=== PATIENT | female | born 1940 | race Caucasian/White ===

== ENCOUNTER → 2017-06-24 | Outpatient (CLI) | payer MEDICARE, OTHER ==
[~2017-06-24] MED LIST: BIMA0.01 EACHEYE; DORZ1SOL2 OP
[2017-06-24 11:26] VITALS: BP_SYST 126; BP_SYST 128; BP_DIAS 57; BP_DIAS 88
[2017-06-24 12:30] VITALS: BP 126/88
[2017-06-24 12:40] VITALS: BP 128/57
== END | disposition home or self-care (01) ==
LOC: CHF HDHVI 10:53
PROVIDERS: ATTEND Internal Medicine Cardiovascular Disease
DX: I25.118 Atherosclerotic heart disease of native coronary artery with other forms of angina pectoris (principal); I50.23 Acute on chronic systolic (congestive) heart failure; E11.9 Type 2 diabetes mellitus without complications; I63.9 Cerebral infarction, unspecified; Z98.61 Coronary angioplasty status
CPT/HCPCS: 93005; G0166; G0463

== ENCOUNTER → 2017-06-25 | Outpatient (CLI) | payer MEDICARE, OTHER ==
[2017-06-25 11:12] VITALS: BP_SYST 136; BP_SYST 141; BP_DIAS 71; BP_DIAS 75
== END | disposition home or self-care (01) ==
LOC: CHF HDHVI 10:51
PROVIDERS: ATTEND Internal Medicine Cardiovascular Disease
DX: E11.9 Type 2 diabetes mellitus without complications (principal); I25.118 Atherosclerotic heart disease of native coronary artery with other forms of angina pectoris; I25.5 Ischemic cardiomyopathy; I50.23 Acute on chronic systolic (congestive) heart failure; I63.9 Cerebral infarction, unspecified; Z98.61 Coronary angioplasty status
CPT/HCPCS: G0166

== ENCOUNTER → 2017-06-26 | Outpatient (CLI) | payer MEDICARE, OTHER ==
[2017-06-26 11:22] VITALS: BP_SYST 140; BP_SYST 142; BP_DIAS 70; BP_DIAS 77
== END | disposition home or self-care (01) ==
LOC: Rad HDHVI 10:46
PROVIDERS: ATTEND Internal Medicine Cardiovascular Disease
DX: I25.118 Atherosclerotic heart disease of native coronary artery with other forms of angina pectoris (principal); I25.5 Ischemic cardiomyopathy; I50.23 Acute on chronic systolic (congestive) heart failure; E11.9 Type 2 diabetes mellitus without complications; I63.9 Cerebral infarction, unspecified; Z98.61 Coronary angioplasty status
CPT/HCPCS: 93306; G0166

== ENCOUNTER → 2017-06-28 | Outpatient (CLI) | payer MEDICARE, OTHER ==
[2017-06-28 11:35] VITALS: BP_SYST 139; BP_SYST 140; BP_DIAS 61; BP_DIAS 74
== END | disposition home or self-care (01) ==
LOC: CHF HDHVI 10:54
PROVIDERS: ATTEND Internal Medicine Cardiovascular Disease
DX: I25.118 Atherosclerotic heart disease of native coronary artery with other forms of angina pectoris (principal); I25.5 Ischemic cardiomyopathy; I50.23 Acute on chronic systolic (congestive) heart failure; E11.9 Type 2 diabetes mellitus without complications; I63.9 Cerebral infarction, unspecified; Z98.61 Coronary angioplasty status
CPT/HCPCS: G0166

== ENCOUNTER → 2017-07-01 | Outpatient (CLI) | payer MEDICARE, OTHER ==
[2017-07-01 11:04] VITALS: BP_SYST 134; BP_SYST 137; BP_DIAS 76; BP_DIAS 90
== END | disposition home or self-care (01) ==
LOC: CHF HDHVI 10:57
PROVIDERS: ATTEND Internal Medicine Cardiovascular Disease
DX: I25.118 Atherosclerotic heart disease of native coronary artery with other forms of angina pectoris (principal); I25.5 Ischemic cardiomyopathy; E11.9 Type 2 diabetes mellitus without complications; I63.9 Cerebral infarction, unspecified; Z98.61 Coronary angioplasty status
CPT/HCPCS: G0166

== ENCOUNTER → 2017-07-02 | Outpatient (CLI) | payer MEDICARE, OTHER ==
[2017-07-02 11:34] VITALS: BP_SYST 136; BP_SYST 137; BP_DIAS 70; BP_DIAS 72
== END | disposition home or self-care (01) ==
LOC: CHF HDHVI 11:10
PROVIDERS: ATTEND Internal Medicine Cardiovascular Disease
DX: I25.118 Atherosclerotic heart disease of native coronary artery with other forms of angina pectoris (principal); I25.5 Ischemic cardiomyopathy; E11.9 Type 2 diabetes mellitus without complications; I50.23 Acute on chronic systolic (congestive) heart failure; I63.9 Cerebral infarction, unspecified; Z98.61 Coronary angioplasty status
CPT/HCPCS: G0166

== ENCOUNTER → 2017-07-03 | Outpatient (CLI) | payer MEDICARE, OTHER ==
[2017-07-03 11:20] VITALS: BP_SYST 130; BP_SYST 132; BP_DIAS 70; BP_DIAS 80
== END | disposition home or self-care (01) ==
LOC: CHF HDHVI 11:07
PROVIDERS: ATTEND Internal Medicine Cardiovascular Disease
DX: I25.118 Atherosclerotic heart disease of native coronary artery with other forms of angina pectoris (principal); E11.9 Type 2 diabetes mellitus without complications; I25.5 Ischemic cardiomyopathy; I50.23 Acute on chronic systolic (congestive) heart failure; I63.9 Cerebral infarction, unspecified; Z98.61 Coronary angioplasty status
CPT/HCPCS: G0166

== ENCOUNTER → 2017-07-04 | Outpatient (CLI) | payer MEDICARE, OTHER ==
[2017-07-04 11:01] VITALS: BP_SYST 139; BP_DIAS 81; BP_DIAS 83
== END | disposition home or self-care (01) ==
LOC: CHF HDHVI 10:55
PROVIDERS: ATTEND Internal Medicine Cardiovascular Disease
DX: I25.118 Atherosclerotic heart disease of native coronary artery with other forms of angina pectoris (principal); I25.5 Ischemic cardiomyopathy; I50.23 Acute on chronic systolic (congestive) heart failure; I63.9 Cerebral infarction, unspecified; E11.9 Type 2 diabetes mellitus without complications; Z98.61 Coronary angioplasty status
CPT/HCPCS: G0166

== ENCOUNTER → 2017-07-05 | Outpatient (CLI) | payer MEDICARE, OTHER ==
[2017-07-05 09:14] VITALS: BP_SYST 124; BP_SYST 131; BP_DIAS 64; BP_DIAS 72
== END | disposition home or self-care (01) ==
LOC: Rad HDHVI 10:43
PROVIDERS: ATTEND Internal Medicine Cardiovascular Disease
DX: I25.118 Atherosclerotic heart disease of native coronary artery with other forms of angina pectoris (principal); I25.5 Ischemic cardiomyopathy; I50.23 Acute on chronic systolic (congestive) heart failure; E11.9 Type 2 diabetes mellitus without complications; I63.9 Cerebral infarction, unspecified; Z98.61 Coronary angioplasty status
CPT/HCPCS: G0166

== ENCOUNTER → 2017-07-09 | Outpatient (CLI) | payer MEDICARE, OTHER ==
[2017-07-09 11:36] VITALS: BP_SYST 139; BP_SYST 145; BP_DIAS 72; BP_DIAS 74
== END | disposition home or self-care (01) ==
LOC: CHF HDHVI 11:25
PROVIDERS: ATTEND Internal Medicine Cardiovascular Disease
DX: I25.118 Atherosclerotic heart disease of native coronary artery with other forms of angina pectoris (principal); I50.23 Acute on chronic systolic (congestive) heart failure; I63.9 Cerebral infarction, unspecified; E11.9 Type 2 diabetes mellitus without complications; Z98.61 Coronary angioplasty status
CPT/HCPCS: G0166

== ENCOUNTER → 2017-07-10 | Outpatient (CLI) | payer MEDICARE, OTHER ==
[2017-07-10 10:53] VITALS: BP_SYST 132; BP_SYST 138; BP_DIAS 69; BP_DIAS 74
== END | disposition home or self-care (01) ==
LOC: CHF HDHVI 10:45
PROVIDERS: ATTEND Internal Medicine Cardiovascular Disease
DX: I25.118 Atherosclerotic heart disease of native coronary artery with other forms of angina pectoris (principal); I25.5 Ischemic cardiomyopathy; I50.23 Acute on chronic systolic (congestive) heart failure; I63.9 Cerebral infarction, unspecified; E11.9 Type 2 diabetes mellitus without complications; Z98.61 Coronary angioplasty status
CPT/HCPCS: G0166

== ENCOUNTER → 2017-07-11 | Outpatient (CLI) | payer MEDICARE, OTHER ==
[2017-07-11 11:10] VITALS: BP_SYST 137; BP_SYST 139; BP_DIAS 76; BP_DIAS 79
== END | disposition home or self-care (01) ==
LOC: CHF HDHVI 11:08
PROVIDERS: ATTEND Internal Medicine Cardiovascular Disease
DX: I25.118 Atherosclerotic heart disease of native coronary artery with other forms of angina pectoris (principal); I50.23 Acute on chronic systolic (congestive) heart failure; I63.9 Cerebral infarction, unspecified; E11.9 Type 2 diabetes mellitus without complications; Z98.61 Coronary angioplasty status
CPT/HCPCS: G0166

== ENCOUNTER → 2017-07-12 | Outpatient (CLI) | payer MEDICARE, OTHER ==
[~2017-07-12] MED LIST changes: +ATOR20TA50; +LEVO200T45; +LISI40TA; +METF-372; +METO25TA5; +TICA90TA
[2017-07-12 11:28] VITALS: BP_SYST 140; BP_SYST 144; BP_DIAS 75; BP_DIAS 78
== END | disposition home or self-care (01) ==
LOC: CHF HDHVI 11:21
PROVIDERS: ATTEND Internal Medicine Cardiovascular Disease
DX: I25.118 Atherosclerotic heart disease of native coronary artery with other forms of angina pectoris (principal); I25.5 Ischemic cardiomyopathy; I50.23 Acute on chronic systolic (congestive) heart failure; I63.9 Cerebral infarction, unspecified; E11.9 Type 2 diabetes mellitus without complications; Z98.61 Coronary angioplasty status
CPT/HCPCS: G0166

== ENCOUNTER → 2017-07-17 | Outpatient (CLI) | payer MEDICARE, OTHER ==
[2017-07-17 11:08] VITALS: BP_SYST 134; BP_SYST 136; BP_DIAS 71; BP_DIAS 75
== END | disposition home or self-care (01) ==
LOC: CHF HDHVI 11:00
PROVIDERS: ATTEND Internal Medicine Cardiovascular Disease
DX: I25.118 Atherosclerotic heart disease of native coronary artery with other forms of angina pectoris (principal); I25.5 Ischemic cardiomyopathy; I50.23 Acute on chronic systolic (congestive) heart failure; I63.9 Cerebral infarction, unspecified; E11.9 Type 2 diabetes mellitus without complications; Z98.61 Coronary angioplasty status
CPT/HCPCS: G0166

== ENCOUNTER → 2017-07-18 | Outpatient (CLI) | payer MEDICARE, OTHER ==
[2017-07-18 11:34] VITALS: BP_SYST 139; BP_SYST 145; BP_DIAS 76; BP_DIAS 78
== END | disposition home or self-care (01) ==
LOC: CHF HDHVI 10:55
PROVIDERS: ATTEND Internal Medicine Cardiovascular Disease
DX: I25.118 Atherosclerotic heart disease of native coronary artery with other forms of angina pectoris (principal); I25.5 Ischemic cardiomyopathy; I50.23 Acute on chronic systolic (congestive) heart failure; I63.9 Cerebral infarction, unspecified; E11.9 Type 2 diabetes mellitus without complications; Z98.61 Coronary angioplasty status
CPT/HCPCS: G0166

== ENCOUNTER → 2017-07-22 | Outpatient (CLI) | payer MEDICARE, OTHER ==
[2017-07-22 11:36] VITALS: BP_SYST 135; BP_SYST 140; BP_DIAS 73; BP_DIAS 75
== END | disposition home or self-care (01) ==
LOC: CHF HDHVI 10:58
PROVIDERS: ATTEND Internal Medicine Cardiovascular Disease
DX: I25.118 Atherosclerotic heart disease of native coronary artery with other forms of angina pectoris (principal); I25.5 Ischemic cardiomyopathy; I50.23 Acute on chronic systolic (congestive) heart failure; I63.9 Cerebral infarction, unspecified; E11.9 Type 2 diabetes mellitus without complications; Z98.61 Coronary angioplasty status
CPT/HCPCS: G0166

== ENCOUNTER → 2017-07-24 | Outpatient (CLI) | payer MEDICARE, OTHER ==
[2017-07-24 11:13] VITALS: BP_SYST 127; BP_SYST 138; BP_DIAS 70; BP_DIAS 73
== END | disposition home or self-care (01) ==
LOC: CHF HDHVI 10:53
PROVIDERS: ATTEND Internal Medicine Cardiovascular Disease
DX: I25.118 Atherosclerotic heart disease of native coronary artery with other forms of angina pectoris (principal); I25.5 Ischemic cardiomyopathy; I50.23 Acute on chronic systolic (congestive) heart failure; I63.9 Cerebral infarction, unspecified; E11.9 Type 2 diabetes mellitus without complications; Z98.61 Coronary angioplasty status
CPT/HCPCS: G0166

== ENCOUNTER → 2017-07-29 | Outpatient (CLI) | payer MEDICARE, OTHER ==
[2017-07-29 11:06] VITALS: BP_SYST 126; BP_SYST 127; BP_DIAS 76; BP_DIAS 89
== END | disposition home or self-care (01) ==
LOC: CHF HDHVI 10:56
PROVIDERS: ATTEND Internal Medicine Cardiovascular Disease
DX: I25.5 Ischemic cardiomyopathy (principal); I50.23 Acute on chronic systolic (congestive) heart failure; E11.9 Type 2 diabetes mellitus without complications; Z95.5 Presence of coronary angioplasty implant and graft; I25.118 Atherosclerotic heart disease of native coronary artery with other forms of angina pectoris
CPT/HCPCS: G0166

== ENCOUNTER → 2017-07-30 | Outpatient (CLI) | payer MEDICARE, OTHER ==
[2017-07-30 11:15] VITALS: BP_SYST 138; BP_SYST 143; BP_DIAS 78
== END | disposition home or self-care (01) ==
LOC: CHF HDHVI 10:54
PROVIDERS: ATTEND Internal Medicine Cardiovascular Disease
DX: I25.118 Atherosclerotic heart disease of native coronary artery with other forms of angina pectoris (principal); I25.5 Ischemic cardiomyopathy; I50.23 Acute on chronic systolic (congestive) heart failure; Z95.5 Presence of coronary angioplasty implant and graft; E11.9 Type 2 diabetes mellitus without complications; Z86.73 Personal history of transient ischemic attack (TIA), and cerebral infarction without residual deficits
CPT/HCPCS: G0166

== ENCOUNTER 2017-07-31 06:47 | Inpatient (IN) | payer MEDICARE, OTHER ==
[~2017-07-31] VITALS: Ht 157.5 cm; Wt 61.9 kg
[~2017-07-31 06:47] MED LIST changes: -ATOR20TA50; -LEVO200T45; -LISI40TA; -METF-372; -METO25TA5; -TICA90TA
[2017-07-31] MEDS ORDERED: SODIUM CHLORIDE 0.9% 1,000 ML IV ONE (07:31)
[2017-07-31 08:50] LABS: Basophils # (auto) 0.1 uL; Basophils % (auto) 0.8 % (0.0-2.0); Eosinophils # (auto) 0.1 uL; Eosinophils % (auto) 1.7 % (0.0-7.0); Hematocrit 27.4 % (36.0-46.0); Hemoglobin 9.2 g/dL (12.2-16.2); Lymphocytes # (auto) 0.7 uL; Lymphocytes % (auto) 10.8 % (10.0-50.0); Mean Corpuscular Hemoglobin 31.9 pg (28.0-32.0); Mean Corpuscular Hgb Conc. 33.7 g/dL (32.0-36.0); Mean Corpuscular Volume 94.7 fL (80.0-100.0); Monocytes # (auto) 0.4 uL; Monocytes % (auto) 6.6 % (0.0-12.0); Neutrophils # (auto) 5.4 uL; Neutrophils % (auto) 80.1 % (37.0-80.0); Platelet Count (auto) 256 10^3/uL (140-450); Red Blood Cells 2.89 10^6/uL (4.0-5.20); Red Cell Distribution Width 16.3 % (11.8-14.3); White Blood Cell 6.7 10^3/uL (4.4-10.8)
[2017-07-31 09:20] LABS: Albumin 3.2 g/dL (3.4-5.0); BUN/Creatinine Ratio 24.1; Bilirubin, Total 0.7 mg/dL (0.2-1.0); Calcium 8.7 mg/dL (8.5-10.1); Magnesium 1.6 mg/dL (1.6-2.6); Total Protein 6.7 g/dL (6.4-8.2)
[2017-07-31] MEDS ORDERED: NITROGLYCERIN 0.4 MG SL TAB SL PRN (10:00)
[2017-07-31] MEDS ORDERED: PROMETHAZINE HCL 25 MG/ML 1ML IV PRN (10:00)
[2017-07-31] MEDS ORDERED: MORPHINE SULFATE 10 MG/ML INJ 1ML SDV IV PRN ×2 (10:00)
[2017-07-31] MEDS ORDERED: ALBUTEROL SULF 2.5 MG/0.5ML(0.5%) NEB SOLN NEB PRN (10:00)
[2017-07-31] MEDS ORDERED: HYDROcodone-ACET 5/325MG TAB PO PRN (10:00)
[2017-07-31] MEDS ORDERED: ACETAMINOPHEN 500 MG TAB PO PRN (10:00)
[2017-07-31] MEDS ORDERED: TEMAZEPAM 15 MG CAP PO PRN (10:00)
[2017-07-31] MEDS ORDERED: DEXTROSE (50%) 50ML SYRG IV PRN (10:00)
[2017-07-31] MEDS ORDERED: LACTULOSE 20Gm/30ML SOLN PO PRN (10:00)
[2017-07-31] MEDS ORDERED: OSELTAMIVIR 75 MG CAP PO ONE (10:00)
[2017-07-31] MEDS: FUROSEMIDE 40 MG/4 ML VIAL IV SCH (10:43)
[2017-07-31] MEDS: LEVOFLOXACIN 500MG 100 ML IV SCH (10:43)
[2017-07-31] MEDS: ASPirin 81 mg TAB PO SCH (10:43)
[2017-07-31] MEDS: CARVEDILOL 3.125 MG TAB PO SCH ×3 (10:44→23:57)
[2017-07-31] MEDS: POTASSIUM CHL 20 Meq TABLET PO SCH (10:44)
[2017-07-31] MEDS: ENALAPRIL MALEATE 2.5 MG TAB PO SCH (10:45)
[2017-07-31] MEDS: OSELTAMIVIR 75 MG CAP PO SCH ×2 (10:45→23:00)
[2017-07-31] MEDS: ENOXAPARIN SOD 40 MG/0.4 ML SYRINGE SC SCH (10:46)
[2017-07-31] MEDS: NITROGLYCERIN 0.2MG/HR TOPICAL PATCH TD SCH (10:46)
[2017-07-31] MEDS: ACCU-CHEK COMFORT CURVE STRIP VI SCH ×3 (11:51→23:00)
[2017-07-31] MEDS: InsuLIN REG 1unit/0.01ml Soln (100units/ml) SC SCH ×3 (11:52→23:00)
[2017-07-31] MEDS: SODIUM CHLOR 0.9% PF (SALINE LOCK) 10ML VIAL IV SCH ×2 (14:01→22:45)
[2017-07-31] MEDS: BIMATOPROST 0.03% EACHEYE SCH (18:00)
[2017-07-31] MEDS: LORazepam 0.5 MG TAB PO PRN (18:13)
[2017-07-31 19:50] LABS: INR 1.33 (0.9-1.15); Prothrombin Time 14.5 sec (9.37-12.3)
[2017-07-31 21:24] VITALS: BP 131/67
[2017-07-31] MEDS: ATORVASTATIN 20 MG TAB PO SCH (23:00)
[2017-08-01 05:54] LABS: Basophils # (auto) 0 uL; Basophils % (auto) 0.5 % (0.0-2.0); Eosinophils # (auto) 0.1 uL; Hematocrit 28.4 % (36.0-46.0); Hemoglobin 9.6 g/dL (12.2-16.2); Lymphocytes # (auto) 0.9 uL; Lymphocytes % (auto) 18.6 % (10.0-50.0); Mean Corpuscular Hemoglobin 32.4 pg (28.0-32.0); Mean Corpuscular Volume 95.4 fL (80.0-100.0); Monocytes # (auto) 0.5 uL; Monocytes % (auto) 10.1 % (0.0-12.0); Neutrophils # (auto) 3.4 uL; Neutrophils % (auto) 67.8 % (37.0-80.0); Platelet Count (auto) 238 10^3/uL (140-450); Red Blood Cells 2.97 10^6/uL (4.0-5.20)
[2017-08-01 06:26] LABS: BUN/Creatinine Ratio 19.3; Bilirubin, Total 0.7 mg/dL (0.2-1.0); Calcium 8.7 mg/dL (8.5-10.1); Potassium 3.7 mmol/L (3.5-5.1); Total Protein 6.4 g/dL (6.4-8.2)
[2017-08-01] MEDS: SODIUM CHLOR 0.9% PF (SALINE LOCK) 10ML VIAL IV SCH ×3 (06:26→22:40)
[2017-08-01] MEDS: ACCU-CHEK COMFORT CURVE STRIP VI SCH ×4 (09:10→22:41)
[2017-08-01] MEDS: OSELTAMIVIR 75 MG CAP PO SCH ×2 (10:00→22:00)
[2017-08-01] MEDS: InsuLIN REG 1unit/0.01ml Soln (100units/ml) SC SCH ×4 (10:00→22:00)
[2017-08-01] MEDS: ASPirin 81 mg TAB PO SCH ×2 (10:00→10:41)
[2017-08-01] MEDS: LEVOFLOXACIN 500MG 100 ML IV SCH (10:41)
[2017-08-01] MEDS: FUROSEMIDE 40 MG/4 ML VIAL IV SCH (10:41)
[2017-08-01] MEDS: POTASSIUM CHL 20 Meq TABLET PO SCH (10:41)
[2017-08-01] MEDS: CARVEDILOL 3.125 MG TAB PO SCH ×2 (10:41→22:40)
[2017-08-01] MEDS: NITROGLYCERIN 0.2MG/HR TOPICAL PATCH TD SCH (10:42)
[2017-08-01] MEDS: ENOXAPARIN SOD 40 MG/0.4 ML SYRINGE SC SCH (10:42)
[2017-08-01] MEDS: ENALAPRIL MALEATE 2.5 MG TAB PO SCH (10:42)
[2017-08-01 15:18] LABS: Urine Bacteria FEW /hpf (None Seen); Urine Blood Negative /uL (Negative); Urine Mucus FEW (None Seen); Urine Specific Gravity 1.007 (1.001-1.035); Urine WBC 1 /hpf (0 - 5)
[2017-08-01 16:59] VITALS: BP 116/54
[2017-08-01 17:36] VITALS: BP 116/54
[2017-08-01] MEDS: BIMATOPROST 0.03% EACHEYE SCH (18:00)
[2017-08-01 20:00] VITALS: BP 136/59
[2017-08-01] MEDS: LORazepam 0.5 MG TAB PO PRN (20:31)
[2017-08-01 22:00] VITALS: BP 136/59
[2017-08-01] MEDS: ATORVASTATIN 20 MG TAB PO SCH (22:40)
[2017-08-02 05:00] VITALS: BP 115/63
[2017-08-02] MEDS: SODIUM CHLOR 0.9% PF (SALINE LOCK) 10ML VIAL IV SCH (05:46)
[2017-08-02] MEDS: InsuLIN REG 1unit/0.01ml Soln (100units/ml) SC SCH ×2 (06:56→11:27)
[2017-08-02] MEDS: ACCU-CHEK COMFORT CURVE STRIP VI SCH ×2 (06:56→11:25)
[2017-08-02 08:00] VITALS: BP 133/64
[2017-08-02 08:57] VITALS: BP 133/64
[2017-08-02] MEDS ORDERED: LISI40TA (09:55)
[2017-08-02] MEDS ORDERED: LEVO200T45 (09:55)
[2017-08-02] MEDS ORDERED: TICA90TA (09:55)
[2017-08-02] MEDS ORDERED: ATOR20TA50 (09:55)
[2017-08-02] MEDS ORDERED: METF-372 (09:55)
[2017-08-02] MEDS ORDERED: METO25TA5 (09:55)
[2017-08-02] MEDS: ASPirin 81 mg TAB PO SCH (09:56)
[2017-08-02] MEDS: POTASSIUM CHL 20 Meq TABLET PO SCH (10:00)
[2017-08-02] MEDS: ENALAPRIL MALEATE 2.5 MG TAB PO SCH (10:01)
[2017-08-02] MEDS: ENOXAPARIN SOD 40 MG/0.4 ML SYRINGE SC SCH (10:02)
[2017-08-02] MEDS: FUROSEMIDE 40 MG/4 ML VIAL IV SCH (10:03)
[2017-08-02] MEDS: LEVOFLOXACIN 500MG 100 ML IV SCH (10:03)
[2017-08-02] MEDS: CARVEDILOL 3.125 MG TAB PO SCH (10:03)
[2017-08-02] MEDS: NITROGLYCERIN 0.2MG/HR TOPICAL PATCH TD SCH (10:04)
[2017-08-02 12:50] VITALS: BP 133/64
[2017-08-02 13:00] VITALS: BP 98/51
== END 2017-08-02 14:46 | disposition home or self-care (01) | DRG 291 ==
LOC: ER 06:47 → TELE 06:48 → TELE-WESTW 15:18
PROVIDERS: ADMIT Internal Medicine; ATTEND Family Medicine
DX: I13.0 Hypertensive heart and chronic kidney disease with heart failure and stage 1 through stage 4 chronic kidney disease, or unspecified chronic kidney disease (principal); I50.43 Acute on chronic combined systolic (congestive) and diastolic (congestive) heart failure; E11.22 Type 2 diabetes mellitus with diabetic chronic kidney disease; D63.8 Anemia in other chronic diseases classified elsewhere; E44.1 Mild protein-calorie malnutrition; E05.90 Thyrotoxicosis, unspecified without thyrotoxic crisis or storm; E11.9 Type 2 diabetes mellitus without complications; E78.00 Pure hypercholesterolemia, unspecified; E78.5 Hyperlipidemia, unspecified; I25.5 Ischemic cardiomyopathy; I25.10 Atherosclerotic heart disease of native coronary artery without angina pectoris; I44.7 Left bundle-branch block, unspecified; F41.9 Anxiety disorder, unspecified; H40.9 Unspecified glaucoma; I70.90 Unspecified atherosclerosis; J06.9 Acute upper respiratory infection, unspecified; J01.10 Acute frontal sinusitis, unspecified; J44.9 Chronic obstructive pulmonary disease, unspecified; Z82.3 Family history of stroke; I25.2 Old myocardial infarction; Z86.73 Personal history of transient ischemic attack (TIA), and cerebral infarction without residual deficits; Z95.5 Presence of coronary angioplasty implant and graft; Z95.1 Presence of aortocoronary bypass graft; Z68.25 Body mass index [BMI] 25.0-25.9, adult; N18.2 Chronic kidney disease, stage 2 (mild)
CPT/HCPCS: 96360; 99285; G0166; 36415; 71045; 71046; 80053; 80061; 81001; 82550; 82962; 83036; 83735; 83880; 84443; 84484; 85025; 85610; 85652; 86141; 87400; 93005; J1815; J1956

== ENCOUNTER → 2017-08-12 | Outpatient (CLI) | payer MEDICARE, OTHER ==
[~2017-08-12] MED LIST changes: +ATOR20TA50; +LEVO200T45; +LISI40TA; +METF-372; +METO25TA5; +TICA90TA
[2017-08-12 11:18] VITALS: BP_SYST 129; BP_SYST 141; BP_DIAS 65; BP_DIAS 72
== END | disposition home or self-care (01) ==
LOC: CHF HDHVI 11:03
PROVIDERS: ATTEND Internal Medicine Cardiovascular Disease
DX: I25.118 Atherosclerotic heart disease of native coronary artery with other forms of angina pectoris (principal); I25.5 Ischemic cardiomyopathy; I50.23 Acute on chronic systolic (congestive) heart failure; I63.9 Cerebral infarction, unspecified; E11.9 Type 2 diabetes mellitus without complications; Z98.61 Coronary angioplasty status
CPT/HCPCS: G0166

== ENCOUNTER → 2017-08-13 | Outpatient (CLI) | payer MEDICARE, OTHER ==
[2017-08-13 11:20] VITALS: BP_SYST 130; BP_SYST 132; BP_DIAS 62; BP_DIAS 66
== END | disposition home or self-care (01) ==
LOC: CHF HDHVI 11:05
PROVIDERS: ATTEND Internal Medicine Cardiovascular Disease
DX: I25.118 Atherosclerotic heart disease of native coronary artery with other forms of angina pectoris (principal); I25.5 Ischemic cardiomyopathy; I50.23 Acute on chronic systolic (congestive) heart failure; I63.9 Cerebral infarction, unspecified; E11.9 Type 2 diabetes mellitus without complications; Z98.61 Coronary angioplasty status
CPT/HCPCS: G0166

== ENCOUNTER → 2017-08-14 | Outpatient (CLI) | payer MEDICARE, OTHER ==
[2017-08-14 11:28] VITALS: BP_SYST 132; BP_SYST 140; BP_DIAS 64; BP_DIAS 71
== END | disposition home or self-care (01) ==
LOC: CHF HDHVI 11:03
PROVIDERS: ATTEND Internal Medicine Cardiovascular Disease
DX: I25.118 Atherosclerotic heart disease of native coronary artery with other forms of angina pectoris (principal); I25.5 Ischemic cardiomyopathy; I50.23 Acute on chronic systolic (congestive) heart failure; I63.9 Cerebral infarction, unspecified; E11.9 Type 2 diabetes mellitus without complications; Z98.61 Coronary angioplasty status
CPT/HCPCS: G0166

== ENCOUNTER → 2017-08-15 | Outpatient (CLI) | payer MEDICARE, OTHER ==
[2017-08-15 11:16] VITALS: BP_SYST 132; BP_SYST 134; BP_DIAS 65; BP_DIAS 73
== END | disposition home or self-care (01) ==
LOC: CHF HDHVI 10:53
PROVIDERS: ATTEND Internal Medicine Cardiovascular Disease
DX: I25.118 Atherosclerotic heart disease of native coronary artery with other forms of angina pectoris (principal); I25.5 Ischemic cardiomyopathy; I50.23 Acute on chronic systolic (congestive) heart failure; I63.9 Cerebral infarction, unspecified; E11.9 Type 2 diabetes mellitus without complications; Z98.61 Coronary angioplasty status
CPT/HCPCS: G0166

== ENCOUNTER → 2017-08-16 | Outpatient (CLI) | payer MEDICARE, OTHER ==
[2017-08-16 11:09] VITALS: BP_SYST 136; BP_SYST 140; BP_DIAS 68; BP_DIAS 69
== END | disposition home or self-care (01) ==
LOC: CHF HDHVI 10:55
PROVIDERS: ATTEND Internal Medicine Cardiovascular Disease
DX: I25.118 Atherosclerotic heart disease of native coronary artery with other forms of angina pectoris (principal); I25.5 Ischemic cardiomyopathy; I50.23 Acute on chronic systolic (congestive) heart failure; I63.9 Cerebral infarction, unspecified; E11.9 Type 2 diabetes mellitus without complications; Z98.61 Coronary angioplasty status
CPT/HCPCS: G0166

== ENCOUNTER → 2017-08-19 | Outpatient (CLI) | payer MEDICARE, OTHER ==
[2017-08-19 11:14] VITALS: BP_SYST 130; BP_SYST 134; BP_DIAS 62; BP_DIAS 69
== END | disposition home or self-care (01) ==
LOC: CHF HDHVI 11:00
PROVIDERS: ATTEND Internal Medicine Cardiovascular Disease
DX: I25.118 Atherosclerotic heart disease of native coronary artery with other forms of angina pectoris (principal); I25.5 Ischemic cardiomyopathy; I50.23 Acute on chronic systolic (congestive) heart failure; I63.9 Cerebral infarction, unspecified; E11.9 Type 2 diabetes mellitus without complications; Z98.61 Coronary angioplasty status
CPT/HCPCS: G0166

== ENCOUNTER → 2017-08-21 | Outpatient (CLI) | payer MEDICARE, OTHER ==
[2017-08-21 11:19] VITALS: BP_SYST 134; BP_SYST 137; BP_DIAS 75; BP_DIAS 78
== END | disposition home or self-care (01) ==
LOC: CHF HDHVI 10:52
PROVIDERS: ATTEND Internal Medicine Cardiovascular Disease
DX: I25.118 Atherosclerotic heart disease of native coronary artery with other forms of angina pectoris (principal); I25.5 Ischemic cardiomyopathy; I50.23 Acute on chronic systolic (congestive) heart failure; E11.9 Type 2 diabetes mellitus without complications; I63.9 Cerebral infarction, unspecified; Z98.61 Coronary angioplasty status
CPT/HCPCS: G0166

== ENCOUNTER → 2017-08-22 | Outpatient (CLI) | payer MEDICARE, OTHER ==
[2017-08-22 11:15] VITALS: BP_SYST 136; BP_SYST 138; BP_DIAS 68; BP_DIAS 69
== END | disposition home or self-care (01) ==
LOC: CHF HDHVI 10:58
PROVIDERS: ATTEND Internal Medicine Cardiovascular Disease
DX: I25.118 Atherosclerotic heart disease of native coronary artery with other forms of angina pectoris (principal); I25.5 Ischemic cardiomyopathy; I50.23 Acute on chronic systolic (congestive) heart failure; E11.9 Type 2 diabetes mellitus without complications; I63.9 Cerebral infarction, unspecified; Z98.61 Coronary angioplasty status
CPT/HCPCS: G0166

== ENCOUNTER → 2017-08-23 | Outpatient (CLI) | payer MEDICARE, OTHER ==
[2017-08-23 10:58] VITALS: BP_SYST 140; BP_SYST 145; BP_DIAS 74; BP_DIAS 76
== END | disposition home or self-care (01) ==
LOC: CHF HDHVI 10:38
PROVIDERS: ATTEND Internal Medicine Cardiovascular Disease
DX: I25.118 Atherosclerotic heart disease of native coronary artery with other forms of angina pectoris (principal); I25.5 Ischemic cardiomyopathy; I50.23 Acute on chronic systolic (congestive) heart failure; I63.9 Cerebral infarction, unspecified; E11.9 Type 2 diabetes mellitus without complications; Z98.61 Coronary angioplasty status
CPT/HCPCS: G0166

== ENCOUNTER → 2017-08-27 | Outpatient (CLI) | payer MEDICARE, OTHER ==
[2017-08-27 11:10] VITALS: BP_SYST 128; BP_SYST 134; BP_DIAS 63; BP_DIAS 66
== END | disposition home or self-care (01) ==
LOC: CHF HDHVI 10:54
PROVIDERS: ATTEND Internal Medicine Cardiovascular Disease
DX: I25.118 Atherosclerotic heart disease of native coronary artery with other forms of angina pectoris (principal); I25.5 Ischemic cardiomyopathy; I50.23 Acute on chronic systolic (congestive) heart failure; I63.9 Cerebral infarction, unspecified; E11.9 Type 2 diabetes mellitus without complications; Z98.61 Coronary angioplasty status
CPT/HCPCS: G0166

== ENCOUNTER → 2017-08-28 | Outpatient (CLI) | payer MEDICARE, OTHER ==
[2017-08-28 11:01] VITALS: BP_SYST 131; BP_SYST 139; BP_DIAS 67; BP_DIAS 74
== END | disposition home or self-care (01) ==
LOC: CHF HDHVI 10:58
PROVIDERS: ATTEND Internal Medicine Cardiovascular Disease
DX: I25.118 Atherosclerotic heart disease of native coronary artery with other forms of angina pectoris (principal); I25.5 Ischemic cardiomyopathy; I50.23 Acute on chronic systolic (congestive) heart failure; I63.9 Cerebral infarction, unspecified; E11.9 Type 2 diabetes mellitus without complications; Z98.61 Coronary angioplasty status
CPT/HCPCS: G0166

== ENCOUNTER → 2017-08-29 | Outpatient (CLI) | payer MEDICARE, OTHER ==
[2017-08-29 11:02] VITALS: BP_SYST 128; BP_DIAS 66; BP_DIAS 67
== END | disposition home or self-care (01) ==
LOC: CHF HDHVI 10:53
PROVIDERS: ATTEND Internal Medicine Cardiovascular Disease
DX: I25.118 Atherosclerotic heart disease of native coronary artery with other forms of angina pectoris (principal); I25.5 Ischemic cardiomyopathy; I50.23 Acute on chronic systolic (congestive) heart failure; I63.9 Cerebral infarction, unspecified; E11.9 Type 2 diabetes mellitus without complications; Z98.61 Coronary angioplasty status
CPT/HCPCS: G0166

== ENCOUNTER → 2017-08-30 | Outpatient (CLI) | payer MEDICARE, OTHER ==
[2017-08-30 10:59] VITALS: BP_SYST 139; BP_SYST 143; BP_DIAS 66; BP_DIAS 68
== END | disposition home or self-care (01) ==
LOC: CHF HDHVI 11:05
PROVIDERS: ATTEND Internal Medicine Cardiovascular Disease
DX: I25.118 Atherosclerotic heart disease of native coronary artery with other forms of angina pectoris (principal); I25.5 Ischemic cardiomyopathy; I50.23 Acute on chronic systolic (congestive) heart failure; I63.9 Cerebral infarction, unspecified; E11.9 Type 2 diabetes mellitus without complications; Z98.61 Coronary angioplasty status
CPT/HCPCS: G0166

== ENCOUNTER → 2017-09-03 | Outpatient (CLI) | payer MEDICARE, OTHER ==
[2017-09-03 11:05] VITALS: BP_SYST 132; BP_SYST 138; BP_DIAS 77; BP_DIAS 79
== END | disposition home or self-care (01) ==
LOC: CHF HDHVI 11:00
PROVIDERS: ATTEND Internal Medicine Cardiovascular Disease
DX: I25.118 Atherosclerotic heart disease of native coronary artery with other forms of angina pectoris (principal); I25.5 Ischemic cardiomyopathy; I50.23 Acute on chronic systolic (congestive) heart failure; I63.9 Cerebral infarction, unspecified; E11.9 Type 2 diabetes mellitus without complications; Z98.61 Coronary angioplasty status
CPT/HCPCS: G0166

== ENCOUNTER → 2017-09-04 | Outpatient (CLI) | payer MEDICARE, OTHER ==
[2017-09-04 11:02] VITALS: BP_SYST 132; BP_SYST 134; BP_DIAS 75; BP_DIAS 76
== END | disposition home or self-care (01) ==
LOC: CHF HDHVI 10:54
PROVIDERS: ATTEND Internal Medicine Cardiovascular Disease
DX: I25.118 Atherosclerotic heart disease of native coronary artery with other forms of angina pectoris (principal); I50.23 Acute on chronic systolic (congestive) heart failure; I63.9 Cerebral infarction, unspecified; E11.9 Type 2 diabetes mellitus without complications; Z98.61 Coronary angioplasty status
CPT/HCPCS: G0166

== ENCOUNTER → 2017-09-05 | Outpatient (CLI) | payer MEDICARE, OTHER ==
[2017-09-05 10:59] VITALS: BP_SYST 136; BP_SYST 138; BP_DIAS 72; BP_DIAS 73
== END | disposition home or self-care (01) ==
LOC: CHF HDHVI 11:04
PROVIDERS: ATTEND Internal Medicine Cardiovascular Disease
DX: I25.118 Atherosclerotic heart disease of native coronary artery with other forms of angina pectoris (principal); I25.5 Ischemic cardiomyopathy; I50.23 Acute on chronic systolic (congestive) heart failure; I63.9 Cerebral infarction, unspecified; E11.9 Type 2 diabetes mellitus without complications; Z98.61 Coronary angioplasty status
CPT/HCPCS: G0166

== ENCOUNTER → 2018-10-30 | Outpatient (CLI) | payer MEDICARE, OTHER ==
[~2018-10-30] MED LIST changes: -LEVO200T45; +LEVO200T7
== END | disposition home or self-care (01) ==
LOC: Rad HDHVI 13:38
PROVIDERS: ATTEND Internal Medicine Cardiovascular Disease
DX: I34.0 Nonrheumatic mitral (valve) insufficiency (principal); I20.0 Unstable angina; I25.5 Ischemic cardiomyopathy
CPT/HCPCS: 93306

== ENCOUNTER 2021-09-11 18:28 | Inpatient (IN) | payer MEDICARE, OTHER ==
[~2021-09-11] VITALS: Ht 157.5 cm; Wt 74.0 kg
[~2021-09-11 18:28] MED LIST changes: -LISI40TA; +LISI40TA11
[2021-09-11] MEDS ORDERED: FUROSEMIDE 100 MG/10ML VIAL IV ONE (21:15)
[2021-09-11 21:30] LABS: Eosinophils # (auto) 0 10 ^3/uL (0-0.8); Hematocrit 41.1 % (36.0-46.0); Monocytes # (auto) 0.3 10 ^3/uL (0-1.3); Neutrophils # (auto) 2.9 10 ^3/uL (1.6-8.6); Red Cell Distribution Width 18.4 % (11.8-14.3); White Blood Cell 3.5 10^3/uL (4.4-10.8)
[2021-09-11 21:31] LABS: Basophils # (auto) 0.1 10 ^3/uL (0-0.2); Basophils % (auto) 1.6 % (0.0-2.0); Eosinophils % (auto) 0.8 % (0.0-7.0); Hemoglobin 13.8 g/dL (12.2-16.2); Lymphocytes # (auto) 0.3 10 ^3/uL (0.4-5.4); Lymphocytes % (auto) 7.3 % (10.0-50.0); Mean Corpuscular Hemoglobin 36.3 pg (28.0-32.0); Mean Corpuscular Hgb Conc. 33.5 g/dL (32.0-36.0); Mean Corpuscular Volume 108.2 fL (80.0-100.0); Monocytes % (auto) 7.6 % (0.0-12.0); Neutrophils % (auto) 82.7 % (37.0-80.0); Nucleated Red Blood Cells % 1.3 %
[2021-09-11 21:51] LABS: Albumin 2.9 g/dL (3.4-5.0); Calcium 7.6 mg/dL (8.5-10.1); Potassium 4.5 mmol/L (3.5-5.1)
[2021-09-11 21:54] LABS: BUN/Creatinine Ratio 26.2
[2021-09-11 21:56] LABS: Bilirubin, Total 0.8 mg/dL (0.2-1.0); Total Protein 6.3 g/dL (6.4-8.2)
[2021-09-11] MEDS ORDERED: MORPHINE SULFATE INJECTION 2 MG/ML SYRG IV PRN (23:00)
[2021-09-11] MEDS ORDERED: NITROGLYCERIN 0.4 MG SL TAB SL PRN (23:00)
[2021-09-11] MEDS ORDERED: DEXTROSE (50%) 50ML SYRG IV PRN (23:15)
[2021-09-11 23:58] LABS: Urine Amorphous Crystal FEW /hpf (None Seen); Urine Bacteria FEW /hpf (None Seen); Urine Blood TRACE /uL (Negative); Urine Hyaline Cast MOD /lpf (0 - 2); Urine Mucus FEW (None Seen); Urine Specific Gravity 1.011 (1.001-1.035); Urine WBC 25 /hpf (0 - 5)
[2021-09-12 00:16] LABS: Creatinine, Urine 56 mg/dL (30.0-125.0); Sodium Urine 38 mmol/L (40-220)
[2021-09-12] MEDS: cefTRIAXone 1GM/50ML D5W 50 ML IV SCH ×2 (00:47→11:01)
[2021-09-12 04:30] VITALS: BP 137/61
[2021-09-12 05:14] LABS: Urine Bacteria FEW /hpf (None Seen); Urine Blood TRACE /uL (Negative); Urine Hyaline Cast FEW /lpf (0 - 2); Urine Specific Gravity 1.007 (1.001-1.035); Urine WBC 18 /hpf (0 - 5); Urine WBC Clumps PRESENT /hpf (None Seen)
[2021-09-12] MEDS: InsuLIN REG 1unit/0.01ml Soln (100units/ml) SC SCH ×4 (05:41→21:17)
[2021-09-12] MEDS: ACCU-CHEK COMFORT CURVE STRIP VI SCH ×4 (05:42→21:18)
[2021-09-12 06:09] LABS: Basophils # (auto) 0 10 ^3/uL (0-0.2); Basophils % (auto) 0.3 % (0.0-2.0); Eosinophils # (auto) 0 10 ^3/uL (0-0.8); Lymphocytes # (auto) 0.3 10 ^3/uL (0.4-5.4); Lymphocytes % (auto) 7.3 % (10.0-50.0); Monocytes # (auto) 0.3 10 ^3/uL (0-1.3); Neutrophils # (auto) 2.9 10 ^3/uL (1.6-8.6)
[2021-09-12 06:18] LABS: Eosinophils % (auto) 0.8 % (0.0-7.0); Hematocrit 38.8 % (36.0-46.0); Hemoglobin 12.9 g/dL (12.2-16.2); Mean Corpuscular Hemoglobin 35.7 pg (28.0-32.0); Mean Corpuscular Hgb Conc. 33.3 g/dL (32.0-36.0); Mean Corpuscular Volume 107.2 fL (80.0-100.0); Monocytes % (auto) 8.6 % (0.0-12.0); Nucleated Red Blood Cells % 1.3 %; Red Blood Cells 3.62 10^6/uL (4.0-5.20); Red Cell Distribution Width 18.5 % (11.8-14.3); White Blood Cell 3.4 10^3/uL (4.4-10.8)
[2021-09-12] MEDS ORDERED: LEVOTHYROXINE SODIUM 100 MCG TAB PO SCH (07:00)
[2021-09-12 09:00] VITALS: BP 110/60
[2021-09-12] MEDS ORDERED: HEPARIN SODIUM (PORCINE) 5000 UNITS/ML 1ML VIAL SC SCH (10:00)
[2021-09-12] MEDS ORDERED: FUROSEMIDE 40 MG/4 ML VIAL IV SCH (10:00)
[2021-09-12] MEDS: DORZOLAMIDE TIMOLOL EYE EACHEYE SCH ×2 (11:01→21:17)
[2021-09-12] MEDS: ASPirin 81 mg TAB PO SCH (11:02)
[2021-09-12] MEDS: TICAGRELOR 60 MG TAB PO SCH ×2 (11:02→21:17)
[2021-09-12] MEDS: PANTOPRAZOLE 40 MG TAB PO SCH (11:06)
[2021-09-12] MEDS: METOPROLOL TARTRATE 25 MG TAB PO SCH ×2 (11:06→21:18)
[2021-09-12 13:00] VITALS: BP 134/69
[2021-09-12] MEDS ORDERED: LEVOTHYROXINE SODIUM 100 MCG/5 ML INJ IV ONE (15:15)
[2021-09-12] MEDS ORDERED: DOBUTamine 1000MCG/ML 250 ML IV SCH (15:30)
[2021-09-12 17:00] VITALS: BP 96/46
[2021-09-12] MEDS: DOBUTamine 1000MCG/ML 250 ML IV SCH (17:20)
[2021-09-12] MEDS: FUROSEMIDE INJECTION 100 MG in SODIUM CHL 0.9% 100 ML IV SCH (19:00)
[2021-09-12 19:32] LABS: Albumin 2.6 g/dL (3.4-5.0); Calcium 6.9 mg/dL (8.5-10.1); Potassium 4.4 mmol/L (3.5-5.1)
[2021-09-12 19:35] LABS: BUN/Creatinine Ratio 25.7; Bilirubin, Total 0.7 mg/dL (0.2-1.0); Total Protein 5.9 g/dL (6.4-8.2)
[2021-09-12 22:00] VITALS: BP 112/55
[2021-09-12] MEDS ORDERED: ATORVASTATIN 20 MG TAB PO SCH (22:00)
[2021-09-12 23:17] LABS: INR 1.55 (0.9-1.15); Partial Thromboplastin Time 32.5 sec (23.6-33.0)
[2021-09-13] MEDS: DOBUTamine 1000MCG/ML 250 ML IV SCH ×2 (04:52→14:59)
[2021-09-13] MEDS: FUROSEMIDE INJECTION 100 MG in SODIUM CHL 0.9% 100 ML IV SCH ×2 (04:52→11:52)
[2021-09-13 05:00] VITALS: BP 91/59
[2021-09-13] MEDS: InsuLIN REG 1unit/0.01ml Soln (100units/ml) SC SCH ×4 (07:00→21:34)
[2021-09-13] MEDS: ACCU-CHEK COMFORT CURVE STRIP VI SCH ×4 (07:06→21:34)
[2021-09-13 08:00] VITALS: BP 97/62
[2021-09-13] MEDS: cefTRIAXone 1GM/50ML D5W 50 ML IV SCH (09:00)
[2021-09-13] MEDS: LEVOTHYROXINE SODIUM 100 MCG/5 ML INJ IV SCH (09:41)
[2021-09-13] MEDS: ASPirin 81 mg TAB PO SCH (09:41)
[2021-09-13] MEDS: METOPROLOL TARTRATE 25 MG TAB PO SCH ×2 (09:42→22:00)
[2021-09-13] MEDS: TICAGRELOR 60 MG TAB PO SCH ×2 (09:42→22:00)
[2021-09-13] MEDS: PANTOPRAZOLE 40 MG TAB PO SCH (09:43)
[2021-09-13] MEDS: DORZOLAMIDE TIMOLOL EYE EACHEYE SCH ×2 (10:00→21:35)
[2021-09-13 12:00] VITALS: BP 91/52
[2021-09-13 12:48] LABS: Potassium 4.4 mmol/L (3.5-5.1)
[2021-09-13 12:52] LABS: Calcium 6.8 mg/dL (8.5-10.1)
[2021-09-13] MEDS ORDERED: SODIUM BICARBONATE 8.4 % INJ 50ML VIAL IV ONE (15:00)
[2021-09-13 16:03] VITALS: BP 98/62
[2021-09-13 22:00] VITALS: BP 93/60
[2021-09-14] VITALS (20 sets, daily range): BP systolic 90–139; BP diastolic 47–94
[2021-09-14] MEDS: DOBUTamine 1000MCG/ML 250 ML IV SCH ×2 (02:00→10:50)
[2021-09-14 06:09] LABS: Basophils # (auto) 0 10 ^3/uL (0-0.2); Basophils % (auto) 0.4 % (0.0-2.0); Eosinophils # (auto) 0 10 ^3/uL (0-0.8); Hematocrit 30.8 % (36.0-46.0); Hemoglobin 10.4 g/dL (12.2-16.2); Lymphocytes # (auto) 0.3 10 ^3/uL (0.4-5.4); Lymphocytes % (auto) 10.4 % (10.0-50.0); Mean Corpuscular Hemoglobin 35.7 pg (28.0-32.0); Mean Corpuscular Hgb Conc. 33.8 g/dL (32.0-36.0); Mean Corpuscular Volume 105.7 fL (80.0-100.0); Monocytes # (auto) 0.2 10 ^3/uL (0-1.3); Monocytes % (auto) 9.1 % (0.0-12.0); Neutrophils # (auto) 2.1 10 ^3/uL (1.6-8.6); Neutrophils % (auto) 79.1 % (37.0-80.0); Nucleated Red Blood Cells % 2.6 %; Red Blood Cells 2.92 10^6/uL (4.0-5.20); Red Cell Distribution Width 17.8 % (11.8-14.3); White Blood Cell 2.7 10^3/uL (4.4-10.8)
[2021-09-14] MEDS: InsuLIN REG 1unit/0.01ml Soln (100units/ml) SC SCH ×4 (06:36→22:00)
[2021-09-14] MEDS: ACCU-CHEK COMFORT CURVE STRIP VI SCH ×4 (06:36→23:10)
[2021-09-14 07:10] LABS: Potassium 4.1 mmol/L (3.5-5.1)
[2021-09-14 07:11] LABS: Calcium 6.9 mg/dL (8.5-10.1)
[2021-09-14] MEDS: cefTRIAXone 1GM/50ML D5W 50 ML IV SCH (09:00)
[2021-09-14] MEDS ORDERED: fentaNYL CITRATE 100 MCG/2 ML VL ONE (09:01)
[2021-09-14] MEDS ORDERED: diphenhdrAMINE HCL 50 MG/1 ML VL ONE ×2 (09:01→09:31)
[2021-09-14] MEDS ORDERED: ANGIOMAX 250 MG VIAL IV ONE (09:01)
[2021-09-14] MEDS ORDERED: SODIUM CHL 0.9% 50 ML ONE (09:02)
[2021-09-14] MEDS ORDERED: MIDAZOLAM HCL 2MG/2ML 2ml VIAL (1mg/ml) ONE (09:02)
[2021-09-14] MEDS ORDERED: methylPREDNISolone SOD SUCC 125 MG/2 ML VL ONE (09:03)
[2021-09-14] MEDS ORDERED: FAMOTIDINE (10MG/ML) 2ML VL IV ONE ×2 (09:03→09:11)
[2021-09-14] MEDS ORDERED: IOHEXOL 350 MG/ML 100ML IJ ONE ×2 (09:09→09:32)
[2021-09-14] MEDS ORDERED: IODIXANOL 320MG/ML 100ML BTL IV ONE (09:10)
[2021-09-14] MEDS ORDERED: LIDOCAINE 2%HCL (LOCAL ANESTH.) INJ 10ml MDV ONE ×2 (09:10→09:13)
[2021-09-14] MEDS: ASPirin 81 mg TAB PO SCH (10:00)
[2021-09-14] MEDS: METOPROLOL TARTRATE 25 MG TAB PO SCH ×2 (10:00→23:10)
[2021-09-14] MEDS: PANTOPRAZOLE 40 MG TAB PO SCH (10:00)
[2021-09-14] MEDS ORDERED: FUROSEMIDE 100 MG/10ML VIAL IV SCH (10:00)
[2021-09-14] MEDS: LEVOTHYROXINE SODIUM 100 MCG/5 ML INJ IV SCH (10:00)
[2021-09-14] MEDS: DORZOLAMIDE TIMOLOL EYE EACHEYE SCH ×2 (10:00→22:00)
[2021-09-14] MEDS: TICAGRELOR 60 MG TAB PO SCH ×2 (10:00→23:09)
[2021-09-14] MEDS ORDERED: FUROSEMIDE 20 MG/2 ML VIAL ONE ×2 (10:06→11:31)
[2021-09-14] MEDS ORDERED: TICAGRELOR 90 MG TAB ONE (10:15)
[2021-09-14] MEDS ORDERED: FUROSEMIDE 40 MG/4 ML VIAL IV ONE (11:31)
[2021-09-14] MEDS ORDERED: LIDOCAINE W/ EPINEPHRINE 2% INJ 20ML VIAL SC ONE (11:32)
[2021-09-14] MEDS ORDERED: LIDOCAINE W/ EPINEPHRINE 2% INJ 20ML VIAL ONE (11:32)
[2021-09-14] MEDS ORDERED: FUROSEMIDE INJECTION 10 ML ONE (12:04)
[2021-09-14] MEDS: FUROSEMIDE INJECTION 100 MG in SODIUM CHL 0.9% 100 ML IV SCH ×2 (12:13→23:08)
[2021-09-14] MEDS ORDERED: LORazepam 2MG/ML-1ML VIAL IV PRN (20:45)
[2021-09-14] MEDS: ATORVASTATIN 20 MG TAB PO SCH (23:09)
[2021-09-15] VITALS (57 sets, daily range): BP systolic 71–126; BP diastolic 36–73
[2021-09-15 01:16] LABS: Folate (Folic Acid) 12.03 ng/mL (5.38-24)
[2021-09-15] MEDS: FUROSEMIDE INJECTION 100 MG in SODIUM CHL 0.9% 100 ML IV SCH (06:15)
[2021-09-15 06:31] LABS: Basophils # (auto) 0 10 ^3/uL (0-0.2); Basophils % (auto) 0.2 % (0.0-2.0); Eosinophils # (auto) 0 10 ^3/uL (0-0.8); Eosinophils % (auto) 0.1 % (0.0-7.0); Hematocrit 25.3 % (36.0-46.0); Hemoglobin 8.5 g/dL (12.2-16.2); Lymphocytes # (auto) 0.1 10 ^3/uL (0.4-5.4); Lymphocytes % (auto) 3.5 % (10.0-50.0); Mean Corpuscular Hemoglobin 35.4 pg (28.0-32.0); Mean Corpuscular Hgb Conc. 33.7 g/dL (32.0-36.0); Mean Corpuscular Volume 105.2 fL (80.0-100.0); Monocytes # (auto) 0.2 10 ^3/uL (0-1.3); Monocytes % (auto) 4.8 % (0.0-12.0); Neutrophils # (auto) 3.6 10 ^3/uL (1.6-8.6); Neutrophils % (auto) 91.4 % (37.0-80.0); Nucleated Red Blood Cells % 1.7 %; Red Cell Distribution Width 17.2 % (11.8-14.3); White Blood Cell 3.9 10^3/uL (4.4-10.8)
[2021-09-15] MEDS: ACCU-CHEK COMFORT CURVE STRIP VI SCH ×4 (06:32→22:40)
[2021-09-15] MEDS: InsuLIN REG 1unit/0.01ml Soln (100units/ml) SC SCH ×4 (06:32→22:00)
[2021-09-15 08:00] LABS: BUN/Creatinine Ratio 25.2; Calcium 7.1 mg/dL (8.5-10.1); Potassium 4.5 mmol/L (3.5-5.1)
[2021-09-15] MEDS ORDERED: SODIUM BICARBONATE 650 MG TAB PO ONE (08:15)
[2021-09-15] MEDS: DORZOLAMIDE TIMOLOL EYE EACHEYE SCH ×2 (10:00→22:00)
[2021-09-15] MEDS: cefTRIAXone 1GM/50ML D5W 50 ML IV SCH (10:06)
[2021-09-15] MEDS: DOBUTamine 1000MCG/ML 250 ML IV SCH (10:06)
[2021-09-15] MEDS: TICAGRELOR 60 MG TAB PO SCH ×2 (10:06→22:40)
[2021-09-15] MEDS: METOPROLOL TARTRATE 25 MG TAB PO SCH (10:07)
[2021-09-15] MEDS: PANTOPRAZOLE 40 MG TAB PO SCH (10:07)
[2021-09-15] MEDS: LEVOTHYROXINE SODIUM 100 MCG TAB PO SCH (10:07)
[2021-09-15] MEDS: ASPirin 81 mg TAB PO SCH (10:07)
[2021-09-15] MEDS: NOREPINEPHRINE 8 MG/250ML KIT 250 ML IV SCH ×2 (11:30→18:02)
[2021-09-15] MEDS ORDERED: MIDAZOLAM HCL 5 MG/ML-1ML VIAL ONE (11:54)
[2021-09-15] MEDS ORDERED: SUCCINYLCHOLINE CHLORIDE 20 MG/ML 10ML VIAL IV ONE (11:55)
[2021-09-15] MEDS ORDERED: ETOMIDATE (2MG/ML) 20ML VIAL IV ONE (11:55)
[2021-09-15] MEDS ORDERED: SODIUM CHLORIDE 0.9% 500 ML IV ONE (12:30)
[2021-09-15] MEDS ORDERED: ALBUMIN 25% 100 ML IV ONE ×2 (12:30)
[2021-09-15] MEDS: SODIUM BICARBONATE 650 MG TAB PO SCH ×2 (14:00→22:39)
[2021-09-15 14:33] LABS: Basophils # (auto) 0 10 ^3/uL (0-0.2); Basophils % (auto) 0.1 % (0.0-2.0); Eosinophils # (auto) 0 10 ^3/uL (0-0.8); Hematocrit 25.5 % (36.0-46.0); Hemoglobin 8.4 g/dL (12.2-16.2); Lymphocytes # (auto) 0.2 10 ^3/uL (0.4-5.4); Lymphocytes % (auto) 3.4 % (10.0-50.0); Mean Corpuscular Hemoglobin 35.7 pg (28.0-32.0); Mean Corpuscular Volume 108.1 fL (80.0-100.0); Monocytes # (auto) 0.2 10 ^3/uL (0-1.3); Monocytes % (auto) 4.6 % (0.0-12.0); Neutrophils # (auto) 4.6 10 ^3/uL (1.6-8.6); Neutrophils % (auto) 91.9 % (37.0-80.0); Red Blood Cells 2.36 10^6/uL (4.0-5.20); Red Cell Distribution Width 17.5 % (11.8-14.3)
[2021-09-15 14:34] LABS: Nucleated Red Blood Cells % 4.6 %
[2021-09-15] MEDS: fentaNYL Drip 2500mCg/250mlNS 250 ML IV SCH (15:30)
[2021-09-15] MEDS: MIDAZOLAM DRIP 50 mg/50mL 50 ML IV SCH (15:30)
[2021-09-15] MEDS: ALBUTEROL SULF 2.5 MG/0.5ML(0.5%) NEB SOLN NEB SCH (18:48)
[2021-09-15] MEDS: IPRATROPIUM BROM 0.5 MG/2.5ML INH SOL NEB SCH (18:49)
[2021-09-15] MEDS: ATORVASTATIN 20 MG TAB PO SCH (22:40)
[2021-09-16] VITALS (102 sets, daily range): BP systolic 86–142; BP diastolic 47–88
[2021-09-16] MEDS: IPRATROPIUM BROM 0.5 MG/2.5ML INH SOL NEB SCH ×4 (00:53→18:59)
[2021-09-16] MEDS: ALBUTEROL SULF 2.5 MG/0.5ML(0.5%) NEB SOLN NEB SCH ×4 (00:53→18:59)
[2021-09-16 03:47] LABS: Basophils # (auto) 0 10 ^3/uL (0-0.2); Eosinophils # (auto) 0 10 ^3/uL (0-0.8); Monocytes # (auto) 0.3 10 ^3/uL (0-1.3)
[2021-09-16 03:52] LABS: Basophils % (auto) 0.1 % (0.0-2.0); Eosinophils % (auto) 0.1 % (0.0-7.0); Hemoglobin 8.5 g/dL (12.2-16.2); Lymphocytes # (auto) 0.4 10 ^3/uL (0.4-5.4); Lymphocytes % (auto) 7.4 % (10.0-50.0); Mean Corpuscular Hemoglobin 36.5 pg (28.0-32.0); Mean Corpuscular Volume 107.3 fL (80.0-100.0); Monocytes % (auto) 5.3 % (0.0-12.0); Neutrophils # (auto) 4.2 10 ^3/uL (1.6-8.6); Neutrophils % (auto) 87.1 % (37.0-80.0); Red Blood Cells 2.33 10^6/uL (4.0-5.20); Red Cell Distribution Width 17.3 % (11.8-14.3); White Blood Cell 4.8 10^3/uL (4.4-10.8)
[2021-09-16 04:11] LABS: Calcium 7.1 mg/dL (8.5-10.1); Potassium 4.4 mmol/L (3.5-5.1)
[2021-09-16 04:15] LABS: BUN/Creatinine Ratio 24.6
[2021-09-16 04:40] LABS: Nucleated Red Blood Cells % 10.4 %
[2021-09-16] MEDS: SODIUM BICARBONATE 650 MG TAB PO SCH ×3 (06:41→21:57)
[2021-09-16] MEDS: InsuLIN REG 1unit/0.01ml Soln (100units/ml) SC SCH ×4 (06:42→21:57)
[2021-09-16] MEDS: ACCU-CHEK COMFORT CURVE STRIP VI SCH ×4 (06:42→21:57)
[2021-09-16] MEDS: NOREPINEPHRINE 8 MG/250ML KIT 250 ML IV SCH (06:42)
[2021-09-16] MEDS: LEVOTHYROXINE SODIUM 100 MCG TAB PO SCH (06:42)
[2021-09-16] MEDS: cefTRIAXone 1GM/50ML D5W 50 ML IV SCH (09:00)
[2021-09-16] MEDS: PANTOPRAZOLE 40 MG/10 ML VIAL INJ IV SCH (09:01)
[2021-09-16] MEDS: DORZOLAMIDE TIMOLOL EYE EACHEYE SCH ×2 (10:00→21:58)
[2021-09-16] MEDS: TICAGRELOR 60 MG TAB PO SCH ×2 (10:07→21:57)
[2021-09-16] MEDS ORDERED: ALBUMIN 25% 100 ML IV PRN (12:15)
[2021-09-16] MEDS: NOREPINEPHRINE BITARTRATE 32 MG in SODIUM CHL 0.9% 218 ML IV SCH (12:30)
[2021-09-16] MEDS ORDERED: SODIUM BICARBONATE 8.4 % INJ 50ML VIAL IV ONE (13:15)
[2021-09-16] MEDS: MIDAZOLAM DRIP 50 mg/50mL 50 ML IV SCH (15:30)
[2021-09-16] MEDS ORDERED: MIDAZOLAM HCL 5 MG/ML-1ML VIAL IV ONE (15:45)
[2021-09-16] MEDS: fentaNYL Drip 2500mCg/250mlNS 250 ML IV SCH (19:50)
[2021-09-16] MEDS ORDERED: EPOETIN ALFA-EPBX 10,000 UNIT/1ML VIAL SC ONE (21:00)
[2021-09-16] MEDS: ATORVASTATIN 20 MG TAB PO SCH (21:57)
[2021-09-17] VITALS (109 sets, daily range): BP systolic 70–137; BP diastolic 30–77
[2021-09-17] MEDS: ALBUTEROL SULF 2.5 MG/0.5ML(0.5%) NEB SOLN NEB SCH ×5 (01:59→23:50)
[2021-09-17] MEDS: IPRATROPIUM BROM 0.5 MG/2.5ML INH SOL NEB SCH ×5 (01:59→23:50)
[2021-09-17 04:24] LABS: Basophils # (auto) 0 10 ^3/uL (0-0.2); Eosinophils # (auto) 0.1 10 ^3/uL (0-0.8); Eosinophils % (auto) 1.2 % (0.0-7.0); Lymphocytes # (auto) 0.3 10 ^3/uL (0.4-5.4)
[2021-09-17 04:26] LABS: Basophils % (auto) 0.1 % (0.0-2.0); Hematocrit 21.6 % (36.0-46.0); Hemoglobin 7.4 g/dL (12.2-16.2); Lymphocytes % (auto) 5.6 % (10.0-50.0); Mean Corpuscular Hemoglobin 36.6 pg (28.0-32.0); Mean Corpuscular Hgb Conc. 34.2 g/dL (32.0-36.0); Mean Corpuscular Volume 107.1 fL (80.0-100.0); Monocytes # (auto) 0.2 10 ^3/uL (0-1.3); Neutrophils # (auto) 4.4 10 ^3/uL (1.6-8.6); Neutrophils % (auto) 88.1 % (37.0-80.0); Nucleated Red Blood Cells % 1.6 %; Red Blood Cells 2.02 10^6/uL (4.0-5.20); Red Cell Distribution Width 16.9 % (11.8-14.3)
[2021-09-17 04:50] LABS: BUN/Creatinine Ratio 22.9; Calcium 7.1 mg/dL (8.5-10.1); Potassium 3.7 mmol/L (3.5-5.1)
[2021-09-17] MEDS: SODIUM BICARBONATE 650 MG TAB PO SCH ×3 (06:00→22:00)
[2021-09-17] MEDS: LEVOTHYROXINE SODIUM 100 MCG TAB PO SCH (06:26)
[2021-09-17] MEDS: ACCU-CHEK COMFORT CURVE STRIP VI SCH ×4 (06:26→22:00)
[2021-09-17] MEDS: InsuLIN REG 1unit/0.01ml Soln (100units/ml) SC SCH ×4 (06:27→22:00)
[2021-09-17] MEDS: DORZOLAMIDE TIMOLOL EYE EACHEYE SCH ×2 (10:00→22:00)
[2021-09-17] MEDS: TICAGRELOR 60 MG TAB PO SCH ×2 (10:00→22:00)
[2021-09-17] MEDS: cefTRIAXone 1GM/50ML D5W 50 ML IV SCH (10:54)
[2021-09-17] MEDS: PANTOPRAZOLE 40 MG/10 ML VIAL INJ IV SCH (10:54)
[2021-09-17 14:01] LABS: % Iron Saturation 25.7 % (15-50)
[2021-09-17] MEDS: fentaNYL Drip 2500mCg/250mlNS 250 ML IV SCH (15:00)
[2021-09-17] MEDS: MIDAZOLAM DRIP 50 mg/50mL 50 ML IV SCH (15:30)
[2021-09-17] MEDS: NOREPINEPHRINE BITARTRATE 32 MG in SODIUM CHL 0.9% 218 ML IV SCH (17:07)
[2021-09-17] MEDS ORDERED: EPOETIN ALFA-EPBX 4,000 UNIT/ML VIAL SC ONE (21:00)
[2021-09-17] MEDS: ATORVASTATIN 20 MG TAB PO SCH (22:00)
[2021-09-18] VITALS (92 sets, daily range): BP systolic 86–132; BP diastolic 43–90
[2021-09-18 05:37] LABS: Basophils # (auto) 0 10 ^3/uL (0-0.2); Eosinophils # (auto) 0 10 ^3/uL (0-0.8); Hematocrit 27.9 % (36.0-46.0); Monocytes # (auto) 0.2 10 ^3/uL (0-1.3); Monocytes % (auto) 4.4 % (0.0-12.0); Neutrophils # (auto) 4.9 10 ^3/uL (1.6-8.6); Nucleated Red Blood Cells % 1.2 %; White Blood Cell 5.3 10^3/uL (4.4-10.8)
[2021-09-18 05:40] LABS: Basophils % (auto) 0.2 % (0.0-2.0); Eosinophils % (auto) 0.3 % (0.0-7.0); Hemoglobin 10.1 g/dL (12.2-16.2); Lymphocytes # (auto) 0.2 10 ^3/uL (0.4-5.4); Lymphocytes % (auto) 2.9 % (10.0-50.0); Mean Corpuscular Hemoglobin 35.6 pg (28.0-32.0); Mean Corpuscular Hgb Conc. 36.2 g/dL (32.0-36.0); Mean Corpuscular Volume 98.3 fL (80.0-100.0); Neutrophils % (auto) 92.2 % (37.0-80.0); Red Blood Cells 2.84 10^6/uL (4.0-5.20); Red Cell Distribution Width 19.5 % (11.8-14.3)
[2021-09-18] MEDS: ALBUTEROL SULF 2.5 MG/0.5ML(0.5%) NEB SOLN NEB SCH ×4 (05:50→23:03)
[2021-09-18] MEDS: IPRATROPIUM BROM 0.5 MG/2.5ML INH SOL NEB SCH ×4 (05:50→23:03)
[2021-09-18 05:51] LABS: Albumin 2.8 g/dL (3.4-5.0); Potassium 3.4 mmol/L (3.5-5.1)
[2021-09-18 05:56] LABS: % Iron Saturation 74.2 % (15-50)
[2021-09-18 06:00] LABS: BUN/Creatinine Ratio 21.4; CRP High Sensitivity 3.88 mg/dL (< 0.3); Pre Albumin 9.8 mg/dL (20.0-40.0); Total Protein 5.2 g/dL (6.4-8.2)
[2021-09-18 06:05] LABS: Thyroid Stimulating Hormone 5.2 uIU/mL (0.358-3.74)
[2021-09-18] MEDS: ACCU-CHEK COMFORT CURVE STRIP VI SCH ×4 (07:00→22:04)
[2021-09-18] MEDS: SODIUM BICARBONATE 650 MG TAB PO SCH ×3 (07:40→21:42)
[2021-09-18] MEDS: LEVOTHYROXINE SODIUM 100 MCG TAB PO SCH (07:40)
[2021-09-18] MEDS: InsuLIN REG 1unit/0.01ml Soln (100units/ml) SC SCH ×4 (07:41→22:00)
[2021-09-18] MEDS: cefTRIAXone 1GM/50ML D5W 50 ML IV SCH (09:31)
[2021-09-18] MEDS: TICAGRELOR 60 MG TAB PO SCH ×2 (09:32→21:45)
[2021-09-18] MEDS: PANTOPRAZOLE 40 MG/10 ML VIAL INJ IV SCH (09:32)
[2021-09-18] MEDS: DORZOLAMIDE TIMOLOL EYE EACHEYE SCH ×2 (09:32→21:02)
[2021-09-18] MEDS: NOREPINEPHRINE BITARTRATE 32 MG in SODIUM CHL 0.9% 218 ML IV SCH (12:16)
[2021-09-18] MEDS: MIDAZOLAM DRIP 50 mg/50mL 50 ML IV SCH (14:08)
[2021-09-18] MEDS: fentaNYL Drip 2500mCg/250mlNS 250 ML IV SCH (14:08)
[2021-09-18 15:07] LABS: Hepatitis A Ab IgM Negative; Hepatitis B Core IgM Negative; Hepatitis C Antibody Negative (Negative)
[2021-09-18 15:16] LABS: Ferritin 547.1 ng/mL (10-322); Free T4 (Free Thyroxine) 0.68 ng/dL (0.89-1.76)
[2021-09-18 15:17] LABS: Folate (Folic Acid) 14.65 ng/mL (5.38-24)
[2021-09-19] VITALS (80 sets, daily range): BP systolic 83–135; BP diastolic 38–64
[2021-09-19] MEDS: fentaNYL Drip 2500mCg/250mlNS 250 ML IV SCH (03:37)
[2021-09-19 04:45] LABS: Basophils # (auto) 0 10 ^3/uL (0-0.2); Eosinophils # (auto) 0 10 ^3/uL (0-0.8)
[2021-09-19 04:48] LABS: Basophils % (auto) 0.1 % (0.0-2.0); Eosinophils % (auto) 0.7 % (0.0-7.0); Hematocrit 27.2 % (36.0-46.0); Hemoglobin 9.4 g/dL (12.2-16.2); Lymphocytes # (auto) 0.2 10 ^3/uL (0.4-5.4); Mean Corpuscular Hemoglobin 34.1 pg (28.0-32.0); Mean Corpuscular Hgb Conc. 34.4 g/dL (32.0-36.0); Mean Corpuscular Volume 99.1 fL (80.0-100.0); Monocytes # (auto) 0.3 10 ^3/uL (0-1.3); Monocytes % (auto) 5.5 % (0.0-12.0); Neutrophils # (auto) 4.4 10 ^3/uL (1.6-8.6); Neutrophils % (auto) 88.7 % (37.0-80.0); Nucleated Red Blood Cells % 0.9 %; Red Blood Cells 2.74 10^6/uL (4.0-5.20); Red Cell Distribution Width 19.9 % (11.8-14.3)
[2021-09-19 05:07] LABS: BUN/Creatinine Ratio 19.9; Calcium 7.1 mg/dL (8.5-10.1)
[2021-09-19] MEDS: ACCU-CHEK COMFORT CURVE STRIP VI SCH ×2 (05:35→11:34)
[2021-09-19] MEDS: InsuLIN REG 1unit/0.01ml Soln (100units/ml) SC SCH ×2 (05:35→11:30)
[2021-09-19] MEDS: SODIUM BICARBONATE 650 MG TAB PO SCH ×2 (05:36→14:23)
[2021-09-19] MEDS: IPRATROPIUM BROM 0.5 MG/2.5ML INH SOL NEB SCH ×2 (05:42→11:25)
[2021-09-19] MEDS: ALBUTEROL SULF 2.5 MG/0.5ML(0.5%) NEB SOLN NEB SCH ×2 (05:42→11:25)
[2021-09-19] MEDS: LEVOTHYROXINE SODIUM 100 MCG TAB PO SCH (06:51)
[2021-09-19 07:18] LABS: Magnesium 1.3 mg/dL (1.6-2.6)
[2021-09-19] MEDS: ALBUMIN 25% 100 ML IV SCH ×2 (09:00→10:30)
[2021-09-19] MEDS: MAGNESIUM SULFATE 1GM/100ML 100 ML IV SCH ×2 (09:06→10:28)
[2021-09-19] MEDS: TICAGRELOR 60 MG TAB PO SCH (10:00)
[2021-09-19] MEDS: DORZOLAMIDE TIMOLOL EYE EACHEYE SCH (10:43)
[2021-09-19] MEDS: NOREPINEPHRINE BITARTRATE 32 MG in SODIUM CHL 0.9% 218 ML IV SCH (11:34)
[2021-09-19] MEDS: cefTRIAXone 1GM/50ML D5W 50 ML IV SCH (12:43)
[2021-09-19] MEDS: PANTOPRAZOLE 40 MG/10 ML VIAL INJ IV SCH (12:44)
[2021-09-19] MEDS: MIDAZOLAM DRIP 50 mg/50mL 50 ML IV SCH (14:23)
[2021-09-19] MEDS ORDERED: MORPHINE SULFATE INJECTION 2 MG/ML SYRG IV PRN (18:15)
[2021-09-19] MEDS ORDERED: LORazepam 2MG/ML-1ML VIAL IV PRN (18:15)
[2021-09-19] MEDS ORDERED: EPOETIN ALFA-EPBX 4,000 UNIT/ML VIAL SC ONE (21:00)
== END 2021-09-19 23:34 | DRG 246 ==
LOC: EDBD 18:28 → ER 18:30 → TELE 23:00 → TELE-WESTW 23:53 → ICU WEST 09-15 11:40
PROVIDERS: ADMIT Internal Medicine; ATTEND Internal Medicine
PROC: 05H933Z Insertion of Infusion Device into Right Brachial Vein, Percutaneous Approach (ICD-10-PCS; 2021-09-12)
PROC: B54MZZA Ultrasonography of Right Upper Extremity Veins, Guidance (ICD-10-PCS; 2021-09-12)
PROC: 027034Z Dilation of Coronary Artery, One Artery with Drug-eluting Intraluminal Device, Percutaneous Approach (ICD-10-PCS; principal; 2021-09-14)
PROC: 02C03ZZ Extirpation of Matter from Coronary Artery, One Artery, Percutaneous Approach (ICD-10-PCS; 2021-09-14)
PROC: 4A023N8 Measurement of Cardiac Sampling and Pressure, Bilateral, Percutaneous Approach (ICD-10-PCS; 2021-09-14)
PROC: B2111ZZ Fluoroscopy of Multiple Coronary Arteries using Low Osmolar Contrast (ICD-10-PCS; 2021-09-14)
PROC: B2151ZZ Fluoroscopy of Left Heart using Low Osmolar Contrast (ICD-10-PCS; 2021-09-14)
PROC: 5A1955Z Respiratory Ventilation, Greater than 96 Consecutive Hours (ICD-10-PCS; 2021-09-15)
PROC: 0BH17EZ Insertion of Endotracheal Airway into Trachea, Via Natural or Artificial Opening (ICD-10-PCS; 2021-09-15)
PROC: 06HM33Z Insertion of Infusion Device into Right Femoral Vein, Percutaneous Approach (ICD-10-PCS; 2021-09-15)
PROC: 5A1D70Z Performance of Urinary Filtration, Intermittent, Less than 6 Hours Per Day (ICD-10-PCS; 2021-09-16)
PROC: 06HN33Z Insertion of Infusion Device into Left Femoral Vein, Percutaneous Approach (ICD-10-PCS; 2021-09-16)
PROC: 5A1D70Z Performance of Urinary Filtration, Intermittent, Less than 6 Hours Per Day (ICD-10-PCS; 2021-09-17)
PROC: 30233N1 Transfusion of Nonautologous Red Blood Cells into Peripheral Vein, Percutaneous Approach (ICD-10-PCS; 2021-09-17)
PROC: 5A1D70Z Performance of Urinary Filtration, Intermittent, Less than 6 Hours Per Day (ICD-10-PCS; 2021-09-19)
DX: I21.4 Non-ST elevation (NSTEMI) myocardial infarction (principal); J96.01 Acute respiratory failure with hypoxia; I50.21 Acute systolic (congestive) heart failure; G93.41 Metabolic encephalopathy; J18.9 Pneumonia, unspecified organism; K66.1 Hemoperitoneum; I13.0 Hypertensive heart and chronic kidney disease with heart failure and stage 1 through stage 4 chronic kidney disease, or unspecified chronic kidney disease; N17.9 Acute kidney failure, unspecified; N39.0 Urinary tract infection, site not specified; E44.0 Moderate protein-calorie malnutrition; G93.1 Anoxic brain damage, not elsewhere classified; J98.11 Atelectasis; J44.0 Chronic obstructive pulmonary disease with (acute) lower respiratory infection; E11.22 Type 2 diabetes mellitus with diabetic chronic kidney disease; I25.10 Atherosclerotic heart disease of native coronary artery without angina pectoris; I44.7 Left bundle-branch block, unspecified; I25.5 Ischemic cardiomyopathy; Z66 Do not resuscitate; E11.649 Type 2 diabetes mellitus with hypoglycemia without coma; E03.9 Hypothyroidism, unspecified; D69.59 Other secondary thrombocytopenia; D53.9 Nutritional anemia, unspecified; I27.20 Pulmonary hypertension, unspecified; E66.9 Obesity, unspecified; E87.6 Hypokalemia; Z20.822 Contact with and (suspected) exposure to COVID-19; I48.91 Unspecified atrial fibrillation; E78.5 Hyperlipidemia, unspecified; I95.9 Hypotension, unspecified; R00.1 Bradycardia, unspecified; I50.82 Biventricular heart failure; N18.9 Chronic kidney disease, unspecified; Z68.30 Body mass index [BMI] 30.0-30.9, adult; Z51.5 Encounter for palliative care; Z79.82 Long term (current) use of aspirin; Z95.1 Presence of aortocoronary bypass graft; Z79.02 Long term (current) use of antithrombotics/antiplatelets; Z79.84 Long term (current) use of oral hypoglycemic drugs; Z82.3 Family history of stroke; Z86.73 Personal history of transient ischemic attack (TIA), and cerebral infarction without residual deficits; Z88.8 Allergy status to other drugs, medicaments and biological substances; Z91.041 Radiographic dye allergy status; Z91.013 Allergy to seafood; Z88.2 Allergy status to sulfonamides
CPT/HCPCS: 36415; 36600; 70450; 71045; 74176; 76775; 80048; 80053; 80061; 80074; 81001; 82040; 82550; 82570; 82607; 82668; 82728; 82746; 82805; 82962; 83010; 83036; 83516; 83540; 83550; 83615; 83735; 83880; 84100; 84156; 84166; 84300; 84439; 84443; 84484; 85025; 85045; 85610; 85652; 85730; 86141; 86225; 86235; 86850; 86880; 86900; 86901; 86920; 87040; 87070; 87081; 87086; 87205; 87426; 90935; 92933; 93005; 93306; 93460; 93886; 94002; 94003; 94640; 95819; 96365; 96375; 99152; 99153; C1724; C1751; C1769; C1874; C1887; C9113; G0378; J0330; J0696; J1642; J2001; J2250; J3490; J7060; P9047; Q9967